=== PATIENT | female | born 1980 | race Two or more races ===

== ENCOUNTER 2016-09-08 14:19 | Emergency (ER) | payer SELFPAY ==
[~2016-09-08] VITALS: Ht 154.9 cm; Wt 84.1 kg
[2016-09-08 16:22] VITALS: BP 119/78
== END 2016-09-08 16:22 | disposition home or self-care (01) ==
LOC: ED 14:19
DX: J98.01 Acute bronchospasm (principal); B34.9 Viral infection, unspecified; Z79.51 Long term (current) use of inhaled steroids
CPT/HCPCS: J7512; J7613; J7644; Q0092